=== PATIENT | female | born 1955 | race Caucasian/White ===

== ENCOUNTER → 2023-08-14 10:34 | Outpatient (CLI) | payer MEDICARE, SELFPAY ==
[2023-08-14 12:06] LABS: HEMOLYSIS < 15 (0-50); Iron 107 ug/dL (37-170)
[2023-08-14 12:17] LABS: Ferritin 35 ng/mL (11-264); Percent Iron Saturation 32 % (15-50); Total Iron Binding Capacity 339 ug/dL (265-497); Transferrin 275 mg/dL (206-381)
== END ==
PROVIDERS: PCP Family Medicine; Referring Provider Family Medicine; Visit Provider Family Medicine
DX: G25.81 Restless legs syndrome (principal)
CPT/HCPCS: 36415; 82728; 83540; 83550